=== PATIENT | male | born 1955 | race Hispanic/Latino ===

== ENCOUNTER 2017-08-17 16:12 | Emergency (ER) | payer MEDICARE ==
[~2017-08-17] VITALS: Ht 175.3 cm; Wt 123.4 kg
[~2017-08-17 16:12] MED LIST: ALPRAZOLAM0.5 MG PO; CALCIUM ACETATE PO; CLOPIDOGREL75 MG PO; CYCLOBENZAPRINE5 MG PO; HUMALOG 75100 UNITS/ SQ; NIFEDIPINE ER90 MG PO; PLAVIX PO; PRAVASTATIN SOD80 MG PO; REGLAN10 MG PO; Z HYTRIN PO; Z.0.ASPIRIN CHEW81 M PO; Z.0.LIPITOR80 MG; Z.0.LOPRESSOR50 MG PO; Z.0.PLAVIX75 MG; Z.0.PRINIVIL20 MG; Z.0.REGLAN5 MG; [UNRECOGNIZED DRUG - REMARK]
--- NOTE | 2017-08-17 17:37 | Diagnostic Imaging Report ---
PROCEDURE:X-RAY RIGHT SHOULDER, COMPLETE COMPARISON:None. INDICATIONS:FELL SHOULDER PAIN FINDINGS: There are no fractures, dislocations, lytic or blastic lesions. The bones are well-mineralized. The soft-tissues are unremarkable. CONCLUSION: No acute osseous abnormality. Nubia Encarnacion M.D. Dictated by: Nubia Encarnacion M.D. on 08/17/2017 at 17:45 Electronically approved by: Nubia Encarnacion M.D. on 08/17/2017 at 17:45
[2017-08-17 22:02] VITALS: BP 132/76
== END 2017-08-17 22:05 | disposition home or self-care (01) ==
LOC: ER 16:12
DX: S46.811A Strain of other muscles, fascia and tendons at shoulder and upper arm level, right arm, initial encounter (principal); W05.0XXA Fall from non-moving wheelchair, initial encounter; Y92.531 Health care provider office as the place of occurrence of the external cause; I12.0 Hypertensive chronic kidney disease with stage 5 chronic kidney disease or end stage renal disease; N18.6 End stage renal disease; Z99.2 Dependence on renal dialysis; I25.10 Atherosclerotic heart disease of native coronary artery without angina pectoris; I50.9 Heart failure, unspecified
CPT/HCPCS: 99283

== ENCOUNTER 2019-02-08 11:32 | Inpatient (IN) | payer MEDICARE, OTHER ==
[2019-02-08] VITALS (13 sets, daily range): BP systolic 58–185; BP diastolic 30–90
[~2019-02-08] VITALS: Ht 175.3 cm; Wt 120.4 kg
--- NOTE | 2019-02-08 12:41 | NUR ---
PATIENT TO ROOM 8
--- NOTE | 2019-02-08 12:54 | NUR ---
Alvaro ricci in ED - 02/08/19 at 1332 by GARRETT Hellen HERNÁNDEZ AT BEDSIDE CLEANING WOUND AND SURTURING PATIENT
[2019-02-08] MEDS ORDERED: ACETAMINOPHEN 325 MG TAB PO ONE (13:00)
[2019-02-08 13:32] LABS: BASOPHILS % 0.1 % (0.0-1.0); HEMATOCRIT 31.7 % (38.2-49.6); HEMOGLOBIN 10.3 g/dL (14.0-18.0); LYMPHOCYTES # (AUTO) 0.5 (1.0-3.2); LYMPHOCYTES % 4.4 % (18.0-39.1); MEAN CORPUSCULAR HEMOGLOBIN 30.9 pg (28-32); MEAN CORPUSCULAR HGB CONC 32.5 g/dL (31-35); MEAN CORPUSCULAR VOLUME 95.2 fL (81-99); MONOCYTES # (AUTO) 0.1 (0.2-0.8); MONOCYTES % 1.3 % (4.4-11.3); NEUTROPHILS % 93.5 % (38.7-80.0); PLATELET COUNT 133 x10e3/uL (140-360); RED BLOOD COUNT 3.33 x10e6/uL (4.3-5.7); RED CELL DISTRIBUTION WIDTH 15.3 % (11.7-14.4)
[2019-02-08 13:38] LABS: INR 1.15; PROTHROMBIN TIME 15.3 seconds (11.9-14.5)
[2019-02-08 13:39] LABS: PARTIAL THROMBOPLASTIN TIME 37.9 seconds (23.8-35.5)
[2019-02-08 13:48] LABS: ALBUMIN 2.9 g/dL (3.5-5.0); ALBUMIN/GLOBULIN RATIO 0.6 (0.8-2.0); CALCIUM 9.5 mg/dL (8.4-10.2); CREATININE, SERUM 6.23 mg/dL (0.72-1.25)
[2019-02-08] MEDS ORDERED: VANCOMYCIN 1GM/NS 250 ML 250 ML IV ONE (14:00)
--- NOTE | 2019-02-08 14:25 | Diagnostic Imaging Report ---
Examination: Single AP view of the chest. COMPARISON: None. INDICATION: Sepsis DISCUSSION: Right subclavian approach implantable cardiac device body projects over the right axilla. Leads project over the right atrium and right ventricle. Lung volumes are low. No focal consolidation or pneumothorax. Enlargement of the cardiac silhouette with postsurgical changes of prior median sternotomy. Prominence of the central pulmonary vasculature with interstitial prominence. No acute osseous abnormality. IMPRESSION: Enlargement of the cardiac silhouette with prominence of the pulmonary interstitium likely reflective of edema, though atypical infection is an additional consideration in the clinical setting of sepsis. Signed by: Dr. Elijah Kirk M.D. on 02/08/2019 2:21 PM
[2019-02-08] MEDS: CEFEPIME 2 GM/NS 0.9% 100 ML 100 ML IV SCH (14:35)
[2019-02-08] MEDS ORDERED: SODIUM BICARBONATE 8.4% INJ 50 ML SYR ONE (15:12)
[2019-02-08] MEDS ORDERED: EPINEPHRINE HCL 1:1000 1ML 1 MG/ML AMP ONE (15:12)
[2019-02-08] MEDS ORDERED: DOPAmine/D5W 1.6 MG/ML 400 MG/250ML PREMIX IV ONE (15:12)
[2019-02-08] MEDS ORDERED: EPINEPHRINE HCL SYRINGE ONE ×3 (15:12→20:16)
[2019-02-08] MEDS ORDERED: INSULIN REGULAR, HUMAN 100 UNIT/1 ML 3ML VIAL IV ONE (15:15)
[2019-02-08] MEDS ORDERED: IBUPROFEN 800MG/ 250ML 250 ML IV PRN (15:15)
[2019-02-08] MEDS ORDERED: ACETAMINOPHEN 325 MG TAB PO PRN (15:15)
[2019-02-08] MEDS ORDERED: SODIUM CHLORIDE FLUSH 10 ML SYR INJ PRN (15:15)
[2019-02-08] MEDS ORDERED: DEXTROSE 50% SYRINGE 50 ML IV PRN (15:15)
[2019-02-08] MEDS ORDERED: SODIUM CHLORIDE 0.9% 500ML 500 ML IV ONE (15:15)
[2019-02-08] MEDS ORDERED: IBUPROFEN 800MG/ 250ML 250 ML IV ONE (15:15)
--- NOTE | 2019-02-08 16:03 | NUR ---
ICE PACKS PLACED ON PATIENT. IBUPROFEN INFUSING
[2019-02-08] MEDS ORDERED: GABAPENTIN300 MG PO (16:27)
[2019-02-08] MEDS ORDERED: AMLODIPINE BESY10 MG PO (16:27)
[2019-02-08] MEDS ORDERED: RENAGEL800 MG PO (16:27)
[2019-02-08] MEDS ORDERED: LEVEMIR100 UNIT/1 SQ (16:42)
[2019-02-08] MEDS ORDERED: NEPHRO-VITE TABL1 EA PO (16:42)
[2019-02-08] MEDS ORDERED: MELATONIN3 MG PO (16:42)
[2019-02-08] MEDS ORDERED: ATORVASTATIN CA20 MG PO (16:42)
[2019-02-08] MEDS ORDERED: ISOSORBIDE MONO20 MG PO (16:42)
[2019-02-08] MEDS ORDERED: ACETAMINOPHEN 1000 MG/100 ML IV STA (17:10)
[2019-02-08] MEDS: INSULIN LISPRO 100 UNIT/1 ML 3ML VIAL SQ SCH ×2 (17:13→23:29)
--- NOTE | 2019-02-08 17:32 | NUR ---
PATIENT LESS RESPONSIVE RESPIRATORY CALLED TO DO ABG AND BIPAP. DR. BOWMAN AT BEDSIDE EVALUATING PATIENT. HE ALSO CALLED DR. PEREYRA AND PRINT INSPECTOR
--- NOTE | 2019-02-08 17:51 | NUR ---
ABG COMPLETED. PATIENT STARTED ON BIPAP.
--- NOTE | 2019-02-08 17:52 | NUR ---
PATIENT ON COOLING BLANKET BIPA 50% / RATE 14 07/18
--- NOTE | 2019-02-08 18:31 | NUR ---
Rachelle called for stat hemodialysis. Informed patient is to go to room 193.
--- NOTE | 2019-02-08 18:44 | NUR ---
SEE CODE SHEETS
[2019-02-08] MEDS ORDERED: MAGNESIUM SULFATE 2GM/50ML 50 ML IV ONE ×2 (18:45)
[2019-02-08] MEDS ORDERED: NOREPINEPHRINE 8 MG/D5W 250 ML 250 ML ONE (19:09)
[2019-02-08] MEDS ORDERED: SODIUM CHLORIDE 0.9% 1000ML 1,000 ML ONE ×3 (19:16→20:47)
[2019-02-08] MEDS: VASOPRESSIN 100 UNIT in DEXTROSE 5% 100ML 95 ML IV SCH (20:00)
--- NOTE | 2019-02-08 20:01 | Diagnostic Imaging Report ---
EXAMINATION: Head CT without contrast. HISTORY:Altered mental status, fever. COMPARISON:None. TECHNIQUE: Multidetector axial images were obtained from the foramen magnum to the vertex without contrast. The images were reconstructed using brain and bone algorithms. Thin section brain images were reformatted into coronal and sagittal planes. Dose modulation, iterative reconstruction, and/or weight based adjustment of the mA/kV was utilized to reduce the radiation dose to as low as reasonably achievable. Intravenous contrast: None IMAGE QUALITY: Acceptable. FINDINGS: Skull/scalp: No lytic or blastic. lesions. No surgical changes. Incidental atherosclerotic calcification in multiple peripheral scalp vessels. Parenchyma: Focal hypodensity in the body of left caudate and left man radiata represents old lacunar infarct. Nonspecific bilateral frontoparietal patchy white matter hypodensity are likely related to small vessel ischemic changes. No acute hemorrhage, mass or acute major vascular territorial infarct. Arteries: No density suggestive of thrombosis. Atherosclerotic calcification in bilateral carotid siphon and V4 segment of vertebral arteries. Dural sinuses: No abnormal density suggestive of thrombosis. Ventricles: No hydrocephalus or displacement. Extra-axial spaces: Small posterior fossa, retrocerebellar extra-axial cystic lesion with mild regional mass effect represents an arachnoid cyst. Brain volume: Mild generalized cerebral volume loss. Craniocervical junction: No mass, Chiari malformation, or basilar invagination. Sella: No mass. Paranasal/mastoid sinuses: Imaged portions unremarkable. IMPRESSION: 1. No acute intracranial abnormality, particularly no acute hemorrhage, mass or acute major vascular territorial infarct. 2. Mild supratentorial white matter microvascular ischemic changes and chronic lacunar infarct in left man radiata and body of left caudate. 3. Mild generalized cerebral volume loss. Signed by: Dr. Tami Schaffer M.D. on 02/08/2019 7:58 PM
[2019-02-08] MEDS ORDERED: EPINEPHRINE HCL 1:1000 1ML 4 MG in DEXTROSE 5% 250ML 250 ML IV PRN (20:15)
[2019-02-08] MEDS ORDERED: NITROGLYCERIN/D5W 200 MCG/ML 250 ML IV PRN (20:30)
[2019-02-08] MEDS ORDERED: ACETAMINOPHEN 325 MG/10 ML UDC PO PRN (20:30)
[2019-02-08] MEDS ORDERED: ACETAMINOPHEN 650 MG SUPP PR PRN (20:30)
--- NOTE | 2019-02-08 20:30 | NUR ---
ETT 8.0 @24 lip, PRVC 22, TV 480, FIO2 60%, P5
[2019-02-08 20:45] LABS: BASOPHILS # (AUTO) 0.1 (0.0-0.1); BASOPHILS % 0.2 % (0.0-1.0); HEMATOCRIT 29.2 % (38.2-49.6); HEMOGLOBIN 9.6 g/dL (14.0-18.0); LYMPHOCYTES # (AUTO) 1.8 (1.0-3.2); LYMPHOCYTES % 6.3 % (18.0-39.1); MEAN CORPUSCULAR HEMOGLOBIN 31.8 pg (28-32); MEAN CORPUSCULAR HGB CONC 32.9 g/dL (31-35); MEAN CORPUSCULAR VOLUME 96.7 fL (81-99); MONOCYTES # (AUTO) 1.7 (0.2-0.8); MONOCYTES % 5.8 % (4.4-11.3); NEUTROPHILS # (AUTO) 24.3 (2.1-6.9); NEUTROPHILS % 85.5 % (38.7-80.0); PLATELET COUNT 147 x10e3/uL (140-360); RED BLOOD COUNT 3.02 x10e6/uL (4.3-5.7); RED CELL DISTRIBUTION WIDTH 15.5 % (11.7-14.4)
[2019-02-08] MEDS ORDERED: ASPIRIN 81 MG CHEW TAB PO ONE (20:45)
[2019-02-08] MEDS ORDERED: PANTOPRAZOLE 40 MG 10ML VIAL IV ONE (20:51)
--- NOTE | 2019-02-08 20:59 | NUR ---
Lactic acid 76.1. Dr Clark notified. No new orders.
[2019-02-08] MEDS ORDERED: HEPARIN SOD (PORCINE) 5,000 UNIT/ML VIAL SC SCH (21:00)
[2019-02-08 21:01] LABS: ALBUMIN 2.2 g/dL (3.5-5.0); ALBUMIN/GLOBULIN RATIO 0.6 (0.8-2.0); ANION GAP 22.5 mmol/L (8-16); CALCIUM 8.2 mg/dL (8.4-10.2); CREATININE, SERUM 6.45 mg/dL (0.72-1.25)
[2019-02-08 21:06] LABS: POTASSIUM 2.5 mmol/L (3.5-5.1)
[2019-02-08] MEDS ORDERED: CISATRACURIUM BESYLATE 100 MG in SODIUM CHLORIDE 0.9% 100 ML IV PRN (21:15)
[2019-02-08] MEDS: SODIUM CHLORIDE 0.9% 250ML IRRIG IR SCH (21:15)
[2019-02-08] MEDS ORDERED: MIDAZOLAM HCL 2 MG/2 ML VIAL IV PRN (21:15)
[2019-02-08] MEDS ORDERED: SODIUM BICARBONATE 8.4% SYRING 50 ML ONE (21:18)
[2019-02-08] MEDS ORDERED: SODIUM BICARBONATE 8.4% INJ 50 ML SYR IV ONE ×2 (21:18)
[2019-02-08 21:20] LABS: ABG HCO3 6 mmol/L (23-28); ABG PCO2 16 mmHg (41-51); ABG PH 7.21 (7.31-7.41); ABG PO2 116 mmHg (80-105)
[2019-02-08 21:20] LABS: INR 1.38; PROTHROMBIN TIME 17.6 seconds (11.9-14.5)
[2019-02-08 21:21] LABS: PARTIAL THROMBOPLASTIN TIME 49.7 seconds (23.8-35.5)
[2019-02-08 21:28] LABS: CREATINE KINASE MB 3.2 ng/mL (0-5.0)
[2019-02-08] MEDS ORDERED: POTASSIUM CHLORIDE 20MEQ/100ML 200 ML IV ONE (21:30)
[2019-02-08] MEDS ORDERED: SODIUM CHLORIDE 0.9% 500ML 500 ML ONE ×2 (21:41→21:42)
--- NOTE | 2019-02-08 21:50 | Diagnostic Imaging Report ---
Examination: Single AP view of the chest. COMPARISON: None. INDICATION: Renal disease, sepsis DISCUSSION: Lines/tubes: Endotracheal tube 3.5 cm above the les. Right IJ catheter with tip over the SVC. Sternotomy wires. Lungs: Pulmonary venous congestion. Pleura: Unremarkable Heart and mediastinum: Cardiomegaly Bones and soft tissues: No acute bony abnormalities. IMPRESSION: 1. Cardiomegaly with pulmonary venous congestion Signed by: Dr. Cortez Dorsey M.D. on 02/08/2019 9:47 PM
--- NOTE | 2019-02-08 21:52 | Diagnostic Imaging Report ---
Exam: Abdominal film Clinical History: Sepsis Comparison: None. DISCUSSION: Right femoral catheter with distal tip overlying the lower lumbar spine. Temperature probe. Nonobstructive bowel gas pattern. IMPRESSION: 1. Nonobstructive bowel gas pattern. Signed by: Dr. Cortez Dorsey M.D. on 02/08/2019 9:48 PM
[2019-02-08] MEDS: CLINDAMYCIN PHOS 900MG/ 50ML 50 ML IV SCH (22:00)
--- NOTE | 2019-02-08 22:41 | Consultation ---
DATE OF CONSULTATION: 02/08/2019 REASON FOR CONSULTATION: Fever, chills, and sepsis. HISTORY OF PRESENT ILLNESS: This patient, who is a 64-year-old [place] male with history of end-stage renal disease, on hemodialysis, comes in with fever, chills, and sepsis. He was seen in the emergency room. The patient started to have fever and chills after dialysis. There are no other complaints. He denies any nausea, vomiting, diarrhea, urgency, frequency, or cough. The patient is confused, but apparently knows his underlying condition. The patient was sent to the emergency room. In the emergency room, he was admitted. At the present time, according to the nursing team, he has been stable except for the fever and chills. The patient, who has history of coronary artery disease, history of angina, and history of end-stage disease, on hemodialysis, had a cardiac catheterization before. History of diabetes mellitus, history of pacemaker, atherosclerotic disease, severe coronary artery disease, severe peripheral vascular disease, morbidly obese patient. PAST MEDICAL HISTORY: Diabetes mellitus, end-stage renal disease, and dementia. PAST SURGICAL HISTORY: IV access for dialysis. ALLERGIES: NKA. SOCIAL HISTORY: There is no smoking, drug abuse, or alcohol abuse. FAMILY HISTORY: Hypertension and diabetes. REVIEW OF SYSTEMS: At the present time, he is not a good source of information as mentioned above. LABORATORY DATA: Reviewed in the emergency room. Blood culture still pending. White count 10.73 and hemoglobin of 10. Sodium 129, potassium 4, and creatinine 6.3. He had a chest x-ray, which showed enlargement of the heart, possible pneumonia. PHYSICAL EXAMINATION: GENERAL: He is currently alert and confused. VITAL SIGNS: Stable. Currently afebrile. HEENT: He is not icteric. NECK: Supple. CHEST: Clear bilateral. COR: S1 and S2. No S3, S4, or murmur. ABDOMEN: Soft. Bowel sounds present. No tenderness. EXTREMITIES: No edema. IMPRESSION AND PLAN: Sepsis, present on admission, source could be pneumonia versus other. I recommended blood cultures and urine cultures. Agree with vancomycin. Agree with cefepime. Vancomycin 1 g now and then after each hemodialysis. Cefepime 1 g now and then every 24 hours. Recheck CBC. Recheck chem panel. Renal consultation. We will follow. MD JOSELO Witt /[id number]
[2019-02-08] MEDS: EYE LUBRICANT OPTH OINT 3.5GM TUBE OP SCH (23:06)
[2019-02-08] MEDS: PANTOPRAZOLE 40 MG 10ML VIAL IV SCH (23:13)
--- NOTE | 2019-02-08 23:51 | Consultation ---
DATE OF CONSULTATION: 02/08/2019 Pulmonary Consultation. The patient of Dr. Clark, Dr. Yeung, and Dr. Melendez. HISTORY OF PRESENT ILLNESS: Unfortunate 64-year-old gentleman was well yesterday prior to admission, underwent dialysis. This morning, he developed a high fever and chills, and became progressively obtunded according to the ER record and then soon arrested, was resuscitated, history of end-stage renal disease, coronary artery disease, peripheral vascular disease, obstructive sleep apnea, history of smoking in the past. No history of insect bites, diarrhea, chest pain, or cough. He did vomit once apparently this morning, was taken to the emergency room. He has had a right BK amputation in the past, AV fistula left arm, coronary artery bypass surgery, gallbladder surgery. PHYSICAL EXAMINATION: VITAL SIGNS: Temperature in the emergency was 104 and is now comatosed, intubated, myoclonic jerks are noted. Temperature 102.6, pulse 93, respirations 18, blood pressure LUNGS: Bilateral rhonchi. HEART: Regular rhythm. ABDOMEN: Diminished bowel sounds. EXTREMITIES: amputation, AV fistula left arm. IMPRESSION: Sepsis, source unclear. I called infectious disease doctor . White count on admission was 10.7, rising rapidly to 28. Check coags. Prophylactic heparin, prophylactic Protonix. Cooling protocol has been initiated. Family conference with the and multiple other family members. Dr. Clark did request full code at this time. We will consider changing in the morning. Poor outlook was discussed. PLAN: To obtain CT of the abdomen, chest x-ray, KUB when patient can tolerate these. Elijah Sosa MD DS/MODL /[id number]
[2019-02-09] VITALS (58 sets, daily range): BP systolic 76–144; BP diastolic 44–65
--- NOTE | 2019-02-09 00:27 | Diagnostic Imaging Report ---
Exam: Abdominal film Clinical History: Enteric tube placement Comparison: None. DISCUSSION: Enteric tube with the tip at the gastroesophageal junction. Recommend further advancement. No dilated loops of bowel. IMPRESSION: 1. Enteric tube with the tip at the gastroesophageal junction. Recommend further advancement. Signed by: Dr. Cortez Dorsey M.D. on 02/09/2019 12:24 AM
[2019-02-09] MEDS: IPRATROPIUM BROMIDE 0.02% 2.5 ML NEB NEB SCH ×4 (00:30→18:49)
--- NOTE | 2019-02-09 00:32 | Consultation ---
DATE OF CONSULTATION: 02/08/2019 HISTORY OF PRESENT ILLNESS: A 64-year-old gentleman known to our Nephrology Service, type 2 diabetes, end-organ damage, neuropathy, retinopathy, peripheral vascular disease, status post extremity amputation procedures, on dialysis. Apparently, developed fever and chills yesterday. From this morning was very lethargic and poorly responsive. Brought to the Emergency Room, where he rapidly deteriorated, currently on BiPAP, and he is although lying flat oxygen saturation 100%, but he is unresponsive. The patient does not follow commands. I am unable to get any review of systems. Blood cultures have been sent. He has been given empiric antibiotics in the form of cefepime. Also received a dose of vancomycin. He is also on insulin sliding scale. Laboratory test shows a white count 10.7, hemoglobin 10.3. Sodium 129, potassium 4, bicarbonate 27, BUN 35, creatinine 6.2, glucose 408 with a lactic acid of 35.7, now these are different parameters as far as the hospitalist concerned. The reference range is 4.5 to 19.8. His magnesium was 1.7. Total bilirubin is 1.0. His influenza test is negative. He was last dialyzed yesterday. Chest x-ray, official report shows prominence of interstitium, likely reflective of edema, though atypical infection is an additional consideration. PAST HISTORY: History of coronary artery bypass surgery, history of hiatal hernia, gastritis, hypertension, diabetes, end-stage renal disease. FAMILY HISTORY: Significant for diabetes. PHYSICAL EXAMINATION: GENERAL: The patient is on BiPAP, unresponsive. VITAL SIGNS: Blood pressure of 98/57, pulse rate 70, afebrile, oxygen saturation 100%. HEAD and NECK: Limited due to BiPAP. Neck veins are not distended. LUNGS: Harsh vesicular breath sounds. Air entry good bilaterally. No clear-cut rales. HEART: S1, S2 audible. ABDOMEN: Otherwise soft, nontender. EXTREMITIES: Lower extremity shows evidence of TMA and BKA. IMPRESSION AND PLAN: Sepsis with relative hypotension, hypomagnesemic, end-stage renal disease, question of possible fluid overload, although this could be pneumonia. Source of infection unclear. We will obtain a stat BNP. Dr. Ryan consulted. Agree with choice of antibiotics. Please see orders. Dialysis called urgently for stat dialysis. MD LEONIE Stanford/MADIHA /[id number]
[2019-02-09] MEDS: SODIUM CHLORIDE 0.9% 250ML IRRIG IR SCH ×6 (01:15→19:38)
[2019-02-09] MEDS: NOREPINEPHRINE 8 MG/D5W 250 ML 250 ML IV PRN (01:40)
[2019-02-09 02:29] LABS: BASOPHILS % 0.1 % (0.0-1.0); EOSINOPHILS # (AUTO) 0.1 (0.0-0.4); EOSINOPHILS % 0.3 % (0.0-6.0); HEMATOCRIT 29.6 % (38.2-49.6); LYMPHOCYTES # (AUTO) 0.8 (1.0-3.2); LYMPHOCYTES % 3.8 % (18.0-39.1); MEAN CORPUSCULAR HEMOGLOBIN 31.8 pg (28-32); MEAN CORPUSCULAR HGB CONC 33.8 g/dL (31-35); MEAN CORPUSCULAR VOLUME 94.3 fL (81-99); MONOCYTES # (AUTO) 1.4 (0.2-0.8); MONOCYTES % 6.4 % (4.4-11.3); NEUTROPHILS # (AUTO) 19.2 (2.1-6.9); NEUTROPHILS % 87.9 % (38.7-80.0); RED BLOOD COUNT 3.14 x10e6/uL (4.3-5.7); RED CELL DISTRIBUTION WIDTH 15.6 % (11.7-14.4)
[2019-02-09 02:39] LABS: INR 1.36; PLATELET COUNT 116 x10e3/uL (140-360); PROTHROMBIN TIME 17.4 seconds (11.9-14.5)
[2019-02-09 02:40] LABS: PARTIAL THROMBOPLASTIN TIME 39.8 seconds (23.8-35.5)
[2019-02-09 02:46] LABS: ANION GAP 23.7 mmol/L (8-16); CALCIUM 8.4 mg/dL (8.4-10.2); CREATININE, SERUM 6.53 mg/dL (0.72-1.25); MAGNESIUM 1.9 MG/DL (1.3-2.1); PHOSPHORUS 3.6 MG/DL (2.3-4.7)
[2019-02-09 03:04] LABS: POTASSIUM 3.7 mmol/L (3.5-5.1)
[2019-02-09] MEDS: CEFEPIME 2 GM/NS 0.9% 100 ML 100 ML IV SCH ×2 (03:46→14:06)
[2019-02-09] MEDS: EYE LUBRICANT OPTH OINT 3.5GM TUBE OP SCH ×6 (03:55→21:10)
[2019-02-09] MEDS ORDERED: INSULIN REGULAR, HUMAN 3ML VL 100 UNIT in SODIUM CHLORIDE 0.9% 100 ML 99 ML IV SCH ×2 (04:00)
--- NOTE | 2019-02-09 04:12 | History and Physical ---
REASON FOR ADMISSION: 1. Sepsis. 2. Status post . 3. Respiratory failure. 4. End-stage renal disease. 5. Lactic acidosis. 6. Metabolic acidosis secondary to lactic acidosis. HISTORY OF PRESENT ILLNESS: The patient is a gentleman, who according to the family was in his usual state of health until approximately about 10:30 this morning when he started becoming febrile and then became slightly confused . During the workup hospitalist noted the patient seemed a little bit more obtunded CPR was initiated and resuscitative measures initiated , but he is not started on Levophed as well as epinephrine , so epinephrine is now being discontinued. He is currently not sedated, but he is now awake, though at this time. PAST MEDICAL HISTORY: Significant for diabetes, end-stage renal disease, peripheral arterial disease, amputation below the right knee, amputation of the left transmetatarsal, hypertension, and hyperlipidemia. MEDICATIONS: See MAR. ALLERGIES: SEE MAR. SOCIAL HISTORY: Lives at home with his . Nonsmoker, nondrinker. PHYSICAL EXAMINATION: VITAL SIGNS: . GENERAL: He is lying in bed intubated, nonresponsive. NECK: Supple. No rigidity. No lymphadenopathy. CARDIOVASCULAR: Regular rate and rhythm. LUNGS: Decreased breath sounds. ABDOMEN: Soft. No distention is noted. EXTREMITIES: No clubbing or cyanosis. No edema of the left foot. SKIN: There is gangrene at the right BKA and left TMA as well as at the AV fistula site. There is another stage 2 ulcer on his buttocks side. He has evidence of erythema. NEUROLOGIC: Unable to be obtained. ASSESSMENT AND PLAN: 1. Sepsis. We will continue the broad-spectrum antibiotics including the clindamycin. Blood cultures have been drawn. 2. Leukocytosis, continue to monitor. 3. Respiratory failure. Continue current care per Dr. Sosa. 4. Status post . 5. End-stage renal disease. He is treated with . 6. Hypokalemia, will be replaced. 7. Metabolic acidosis secondary to lactic acidosis. We will place him on Cymbalta. DISCHARGE DISPOSITION: I had a long talk with the family and then reassess in the morning. . MD LISBETH Bernal/MADIHA /[id number]
[2019-02-09] MEDS ORDERED: INSULIN REGULAR, HUMAN 3ML VL 300 UNIT in SODIUM CHLORIDE 0.45% 100 ML 300 ML IV SCH ×2 (04:29)
[2019-02-09] MEDS ORDERED: DEXTROSE 50% SYRINGE 50 ML IV PRN ×2 (04:30→16:30)
[2019-02-09] MEDS: CLINDAMYCIN PHOS 900MG/ 50ML 50 ML IV SCH (06:43)
--- NOTE | 2019-02-09 07:22 | Progress Note ---
DATE: 02/09/2019 SUBJECTIVE: The patient is a 64-year-old male with a history of end-stage renal disease, comes in with sepsis, comes into the emergency room, who was found to have PE, intubated. The patient is on hypothermia protocol. The patient also has end-stage renal disease. Continuous IV antibiotics and IV hydration have been instituted. The patient is currently on a ventilator for acute respiratory failure too. The patient does continues to have temperature and he is on hypothermic protocol. Fever and chills have come down. The patient has a history of diabetes mellitus. Blood sugars have been running in the 500, IV insulin has been started too. The patient has a history of pacemaker, severe coronary artery disease, and history of morbid obesity with sleep apnea and also severe PAD. The patient was getting his dialysis on when after dialysis, the patient started with fever and feeling bad. Currently, intubated. OBJECTIVE: VITAL SIGNS: Temperature is 91.4, pulse of 70, respirations of 22, blood pressure is 102/54, pulse oximetry of 100%. HEENT: The patient is intubated. CVS: S1 and S2 distant. LUNGS: Decreased air entry. Positive for crackles at bases. ABDOMEN: Distended, protuberant. EXTREMITIES: Right lower extremity below-knee amputation. Left with transmetatarsal amputation. LABORATORY VALUES: White count is 21,000, down from 28,000; hemoglobin of 10; hematocrit of 29.6; platelet count is 116; neutrophil count of 19.2; left shift present. IMAGING STUDIES: Abdominal x-ray done yesterday shows enteric tube with tip at the GE junction. Chest x-ray shows cardiomegaly with pulmonary venous congestion. The patient's brain CT done on the shows no acute intracranial hemorrhages, mild supratentorial white matter ischemic changes, and mild generalized volume loss. The patient's chest x-ray shows enlargement of cardiac silhouette and congestion. ASSESSMENT: 1. Sepsis. The patient is on broad-spectrum antibiotics. Currently, the patient is on clindamycin, cefepime, and a dose of vancomycin was given. 2. End-stage renal disease. Continue monitoring his lytes. 3. Acute respiratory failure, on ventilator. Continue with current vent settings. Pulmonology on case. 4. Sepsis. Again, the patient is on vasopressin and epinephrine. We will continue with pressors. The patient is also on GI prophylaxis with pantoprazole 40 mg and also the patient is getting the insulin drip for hyperglycemia. 5. For his end-stage renal disease, the patient had a stat dialysis. We will continue to monitor the patient. We did discuss with at bedside. Prognosis is very poor and guarded. We will continue to monitor the patient. Labs will be done on a daily basis. We will continue with full code at this point of time, that is the wish of the family. Further recommendation per clinical course. We will keep the patient in ICU. MD BASILIO Joe/MODL /[id number]
--- NOTE | 2019-02-09 08:05 | NUR ---
0800- Labwork drawn. BG 373 (Insulin drip continued at 4units/hr per protocol). Dr. Liu ordered dialysis stat. RN contacted [facility] for stat dialysis.
[2019-02-09 08:08] LABS: BASOPHILS % 0.2 % (0.0-1.0); EOSINOPHILS # (AUTO) 0.2 (0.0-0.4); EOSINOPHILS % 1.3 % (0.0-6.0); HEMATOCRIT 28.4 % (38.2-49.6); HEMOGLOBIN 9.6 g/dL (14.0-18.0); LYMPHOCYTES # (AUTO) 0.8 (1.0-3.2); LYMPHOCYTES % 5.1 % (18.0-39.1); MEAN CORPUSCULAR HEMOGLOBIN 31.5 pg (28-32); MEAN CORPUSCULAR HGB CONC 33.8 g/dL (31-35); MEAN CORPUSCULAR VOLUME 93.1 fL (81-99); MONOCYTES # (AUTO) 0.8 (0.2-0.8); MONOCYTES % 4.8 % (4.4-11.3); NEUTROPHILS # (AUTO) 13.9 (2.1-6.9); NEUTROPHILS % 86.7 % (38.7-80.0); PLATELET COUNT 98 x10e3/uL (140-360); RED BLOOD COUNT 3.05 x10e6/uL (4.3-5.7); RED CELL DISTRIBUTION WIDTH 15.6 % (11.7-14.4)
[2019-02-09 08:18] LABS: INR 1.36; PROTHROMBIN TIME 17.4 seconds (11.9-14.5)
[2019-02-09 08:19] LABS: PARTIAL THROMBOPLASTIN TIME 48.6 seconds (23.8-35.5)
[2019-02-09] MEDS: FENTANYL CITRATE INJ 2000 MCG in SODIUM CHLORIDE 0.9% 210 ML IV PRN (08:20)
[2019-02-09 08:31] LABS: ALBUMIN/GLOBULIN RATIO 0.5 (0.8-2.0); ANION GAP 18.5 mmol/L (8-16); CALCIUM 8.6 mg/dL (8.4-10.2); CREATININE, SERUM 6.62 mg/dL (0.72-1.25); MAGNESIUM 1.9 MG/DL (1.3-2.1); PHOSPHORUS 3.9 MG/DL (2.3-4.7); POTASSIUM 3.5 mmol/L (3.5-5.1)
[2019-02-09 09:03] LABS: CREATINE KINASE MB 15.2 ng/mL (0-5.0)
[2019-02-09 09:09] LABS: BAND NEUTROPHILS % (MANUAL) 10 %; LYMPHOCYTES % (MANUAL) 5 % (19-48); MONOCYTES % (MANUAL) 3 % (3.4-9.0); NEUTROPHILS % (MANUAL) 82 % (40-74); PLATELET ESTIMATE MODERATELY DECREASED; PLATELET MORPHOLOGY COMMENT NORMAL; RBC MORPHOLOGY COMMENT NORMAL
[2019-02-09] MEDS ORDERED: SODIUM CHLORIDE 0.9% 1000ML 2,000 ML ONE (09:18)
[2019-02-09 09:32] LABS: ABG PCO2 30 mmHg (41-51); ABG PH 7.43 (7.31-7.41); ABG PO2 62 mmHg (80-105)
[2019-02-09 09:33] LABS: ABG HCO3 20 mmol/L (23-28)
--- NOTE | 2019-02-09 10:00 | NUR ---
Dr. Yeung aware of patients elevated troponin levels.
--- NOTE | 2019-02-09 10:00 | NUR ---
BG's checked by drawing blood through art line and using glucometer.
[2019-02-09] MEDS ORDERED: INSULIN REGULAR, HUMAN 3ML VL 100 UNIT in SODIUM CHLORIDE 0.45% 100 ML 99 ML IV SCH ×2 (11:00)
--- NOTE | 2019-02-09 12:34 | Diagnostic Imaging Report ---
Exam: KUB - 2 views Clinical History: OG tube placement. Comparison: KUB 02/08/2019 at 1041 PM. DISCUSSION: Enteric tube with the tip at the gastroesophageal junction. Partially seen likely central venous catheter overlying the L4 vertebral body. Non-specific bowel gas pattern. Median sternotomy changes. IMPRESSION: Enteric tube with the tip at the gastroesophageal junction. Recommend advancement. Signed by: Dr. Rox Sanchez MD on 02/09/2019 12:30 PM
[2019-02-09] MEDS ORDERED: VANCOMYCIN 1GM/NS 250 ML 250 ML IV ONE (14:00)
[2019-02-09 14:03] LABS: ABG HCO3 27 mmol/L (23-28); ABG PCO2 47 mmHg (41-51); ABG PH 7.37 (7.31-7.41); ABG PO2 135 mmHg (80-105)
[2019-02-09 14:03] LABS: BASOPHILS # (AUTO) 0.1 (0.0-0.1); BASOPHILS % 0.2 % (0.0-1.0); HEMATOCRIT 32.3 % (38.2-49.6); HEMOGLOBIN 10.8 g/dL (14.0-18.0); LYMPHOCYTES % 5.1 % (18.0-39.1); MEAN CORPUSCULAR HEMOGLOBIN 30.7 pg (28-32); MEAN CORPUSCULAR HGB CONC 33.4 g/dL (31-35); MEAN CORPUSCULAR VOLUME 91.8 fL (81-99); MONOCYTES # (AUTO) 1.6 (0.2-0.8); MONOCYTES % 7.8 % (4.4-11.3); NEUTROPHILS # (AUTO) 17.5 (2.1-6.9); NEUTROPHILS % 86.4 % (38.7-80.0); PLATELET COUNT 126 x10e3/uL (140-360); RED BLOOD COUNT 3.52 x10e6/uL (4.3-5.7); RED CELL DISTRIBUTION WIDTH 15.5 % (11.7-14.4)
[2019-02-09 14:19] LABS: INR 1.24; PROTHROMBIN TIME 16.2 seconds (11.9-14.5)
[2019-02-09 14:20] LABS: PARTIAL THROMBOPLASTIN TIME 42.7 seconds (23.8-35.5)
[2019-02-09] MEDS ORDERED: SODIUM CHLORIDE 0.9% 250ML 500 ML IV PRN (14:30)
[2019-02-09] MEDS ORDERED: SODIUM CHLORIDE 0.9% 1000ML 2,000 ML IV PRN (14:30)
[2019-02-09 14:31] LABS: ANION GAP 16.5 mmol/L (8-16); CALCIUM 9.1 mg/dL (8.4-10.2); CREATININE, SERUM 3.82 mg/dL (0.72-1.25); MAGNESIUM 1.9 MG/DL (1.3-2.1); PHOSPHORUS 3.6 MG/DL (2.3-4.7); POTASSIUM 3.5 mmol/L (3.5-5.1)
[2019-02-09 14:56] LABS: CREATINE KINASE MB 19.5 ng/mL (0-5.0)
--- NOTE | 2019-02-09 15:00 | NUR ---
Patient too unstable to turn Q2 hours throughout the shift. Will resume turning Q2 when patient becomes stable.
[2019-02-09] MEDS ORDERED: SODIUM CHLORIDE 0.9% 500ML 500 ML ONE (15:22)
[2019-02-09 15:50] LABS: BAND NEUTROPHILS % (MANUAL) 5 %; LYMPHOCYTES % (MANUAL) 5 % (19-48); MONOCYTES % (MANUAL) 3 % (3.4-9.0); NEUTROPHILS % (MANUAL) 87 % (40-74)
[2019-02-09 15:53] LABS: PLATELET ESTIMATE SLIGHTLY DECREASED; PLATELET MORPHOLOGY COMMENT MODERATE GIANT
--- NOTE | 2019-02-09 16:48 | Diagnostic Imaging Report ---
EXAMINATION: CHEST SINGLE (PORTABLE), ABDOMEN-1VIEW (KUB) INDICATION: NG Tube placement. COMPARISON: KUB 02/09/2019 and chest radiograph 02/08/2019. FINDINGS: TUBES and LINES: Enteric tube terminates 4.0 cm above the les. NG tube terminates at the thoracic inlet, the side-port overlies the neck. Right-sided pacemaker in unchanged position. Right IJ venous catheter tip is obscured but likely terminates in the upper SVC. LUNGS: Low lung volumes which decreases sensitivity and specificity for pathology. There are perihilar and interstitial opacities. There are increasing patchy opacities at the lung bases. PLEURA: Possible small left pleural effusion. No evidence of pneumothorax. HEART AND MEDIASTINUM: The cardiomediastinal silhouette is mildly enlarged. There are atherosclerotic calcifications within the aorta. BONES AND SOFT TISSUES: No acute osseous abnormality. Status post median sternotomy. ABDOMEN: Limited visualization of the left upper abdomen. No free air under the diaphragm. No dilated bowel loops. IMPRESSION: NG tube terminates at the thoracic inlet, recommend repositioning. Other lines and tubes as above. Low lung volumes with increasing pulmonary edema. Increasing patchy opacities of the lung bases, which may represent atelectasis or pneumonia in the appropriate clinical setting. Signed by: Dr. Rox Sanchez MD on 02/09/2019 4:45 PM
[2019-02-09 17:26] LABS: FREE T4 (FREE THYROXINE) 1.48 ng/dL (0.8-1.8); THYROID STIMULATING HORMONE 1.726 uIU/mL (0.350-4.940)
[2019-02-09 17:33] LABS: ABG PCO2 40 mmHg (41-51); ABG PH 7.45 (7.31-7.41)
[2019-02-09 17:34] LABS: ABG HCO3 29 mmol/L (23-28); ABG PO2 115 mmHg (80-105)
--- NOTE | 2019-02-09 17:57 | NUR ---
0845- ABG done, vent settings changed per Dr. Sosa. 0930- Consults Dr. Hickey and Lasha notified. 1140- Repeat ABG done and Dr. Sosa notified of results. No new orders at this time. MD aware that pulse ox is reading incorrectly, ABGs were done to confirm O2 saturations. 1400- Dialysis completed 2.5 L removed. 1600- Patient weaned off of Levophed. Arterial line blood pressures stable at this time. Hypothermia protocol to be continued until time to rewarm. Patient does not appear to be in any distress at this time.
--- NOTE | 2019-02-09 18:10 | NUR ---
OG tube requiring advancement per imaging. RN unable to further advance OG tube. NG tube placement attempted, however imaging revealed unsuccessful placement. NG tube was then removed.
--- NOTE | 2019-02-09 18:27 | NUR ---
Nutrition Intervention Note RD Recommendation(s) for Physician: 1.When hemodynamically stable recommend to initiate continuous tube feed Vital HP @ 10mL/hr and advance as tolerated to goal rate of 70ml/hr (1680kcal, 147g protein, 1404mL of H20) 2.Add Ilia BID (28g protein) into NG tube to increase protein calorie intake for ESRD and pressure ulcer 3.Water flushes 50ml q 4hrs, additional per MD 4.Monitor labs, gastric residuals and weight daily Plan of Care: RD following, monitoring for tolerance and adequacy, TF recommendations Nutrition reason for involvement: Nutrition Risk Trigger RD Assessment (02/09) 64 y/o M in with sepsis, found to have PE, intubated. The patient is on hypothermia protocol. The patient also has ESRD, Stage 2 pressure wound. Patient unable to communicate due to patient medical status on ventilator. Visited patient in the room, noted Norepinephrine running at 1.2mcg/min, RN stated will be turned up to 5mcg/min. No family at bedside, will communicate nutrition recommendation when patient is hemodynamically stable to feed. Principal Problems/Diagnoses: ESRD, Sepsis PMH: Significant for diabetes, end-stage renal disease, peripheral arterial disease, amputation below the right knee, amputation of the left transmetatarsal, hypertension, and hyperlipidemia GI: Abdominal. Soft large, OG tube present Skin: Stage pressure wound noted by RN, pending wound care visits Labs: (02/09) Sodium 134, Creat 3.82, GFR 16, Glucose 235, Meds: (02/09) Fentanyl, Cefepime, Norepinephrine, Protonix Ht: 69in Wt: 266 lbs BMI: N/A IBW: 151 lbs with BKA +/- 10% Malnutrition Evaluation (02/09) Unable to evaluate due to current medical status Nutrition Prescription (Diet Order): ADA Diet Estimated Nutritional Needs: 5300-2415 calories/day (11-14kcal/kg CBW) 181-240 g protein/day (1.5 -2.0g pro/kg CBW) Diet Adequacy: Not meeting calorie needs, not meeting protein needs Diet Education Needs Assessment: Diet education indicated, but patient not appropriate for education at this time. Nutrition Care Level: HIGH Nutrition Diagnosis: Inadequate oral intake related to patient unable to eat orally as evidenced by patient on ventilator and current medical status Goal: Patient will meet 75-100% of estimated needs by follow up Progress: Progressing Interventions: Commercial food, Composition, Rate, Route, IVF, Prescription medications, Multivitamin/mineral supplement therapy Monitoring/Evaluation: Total energy intake, Total protein intake, Formula/Solution, IVF, Prescription medication, Weight change Signed: Jessica Herman MS, RDN, LD
--- NOTE | 2019-02-09 18:59 | Consultation ---
DATE OF CONSULTATION: 02/09/2019 Endocrine Consultation. The patient of Dr. Clark and Dr. Leonarda Melendez. Thank you very much for referring this patient. HISTORY OF PRESENT ILLNESS: This is a 64-year-old gentleman who was referred to me for evaluation of uncontrolled diabetes mellitus and diabetic ketoacidosis. Most of the history is available from the chart and from the nursing station. The patient reportedly is a known diabetic and is on insulin. He has end-stage renal failure on chronic hemodialysis. He came to the hospital with history of altered mental status and sepsis. The patient is presently on the vent and hypothermia protocol. The patient also has history of hypertension, high blood pressure. The patient is presently on the vent. He is status post cardiorespiratory arrest and ARDS. His lactic acid levels are significantly elevated at the time of admission at 76. His blood sugar at the time of admission was 408 and anion gap is around 18. PHYSICAL EXAMINATION: GENERAL: Today, the patient is sedated. He is on the vent. VITAL SIGNS: His heart rate is around 70, blood pressure is 110/70. He is still on a pressor. CHEST: Bilateral vesicular breathing. He has mild bronchospasm. CARDIOVASCULAR: First and second heart sounds. There are no third or fourth heart sounds with the systolic grade 2/6. The patient is status post TMA on the left side and below-knee amputation on the right side. CLINICAL IMPRESSION: Diabetes mellitus type 2, uncontrolled with complication, diabetic ketoacidosis, lactic acidosis, sepsis, end-stage renal failure on chronic hemodialysis, acute respiratory failure, ARDS. PLAN: At this time is to continue the insulin drip. We will do a hemoglobin A1c, thyroid function test. Monitor his blood sugars closely. Thanks for referring this patient. I will be following this patient with you. MD BROOKLYN Lomeli/MADIHA /[id number]
--- NOTE | 2019-02-09 19:19 | Consultation ---
DATE OF CONSULTATION: 02/09/2019 Cardiac Consultation REASON FOR CONSULTATION: Multiple problems including status post CPR, respiratory failure, sepsis and septicemia, end-stage renal disease, on dialysis; coronary artery disease, status post coronary artery bypass surgery, status post pacemaker implantation; severe peripheral arterial vascular disease, metabolic acidosis and lactic acidosis secondary to septicemia. HISTORY OF PRESENT ILLNESS: This is a 64-year-old gentleman, who is known with several health problems including coronary artery disease, coronary artery bypass surgery in 2014 with pacemaker implantation same year. Has hypertension. He is known to have severe peripheral arterial vascular disease, status post right below-knee amputation and left metatarsal amputation. He is diabetic with severe end-organ damage affecting his peripheral neuropathy, cardiac, renal, vision, etc. He does have history of atrial fibrillation, refusing anticoagulation. The patient was in his usual status of health. As per family, he started spiking temperature. Yesterday his temperature was very high and he become more confused, more agitated. He was brought to the emergency room. He was obtunded. He went to pulmonary and cardiac arrest and he was extremely hypotensive. The patient states that he was covered with antibiotics. He had blood culture. He is placed on large dose of Levophed and vasopressin to maintain blood pressure. The patient is on Levophed and vasopressin large dosage. He is having severe lactic acidosis. His white blood cell count at 28.5. His lactic acid is elevated. He got severe metabolic derangement. The patient is transferred to intensive care unit. The patient is seen in the intensive care unit. He is still on Levophed and vasopressin. He is started on hemodialysis, the goal is to take 3 liters of fluid. He is really ill. He is on ventilator. Information taken from the family and the nursing staff and from his records. REVIEW OF SYSTEMS: Unable to get. SOCIAL HISTORY: He stopped smoking in 2014. He does not drink alcohol. He is . He is disabled. HOME MEDICATIONS: Include: 1. Aspirin 81 mg a day. 2. Plavix 75 mg a day. 3. Pravastatin 80 mg a day. 4. Metoprolol 50 mg twice a day. 5. Nifedipine 90 mg a day. 6. Losartan 100 mg a day. 7. Glimepiride 4 mg two tablets daily. 8. Levemir. 9. Terazosin. 10. Metoclopramide. 11. Calcium acetate. 12. Xanax. ALLERGIES: NONE. PAST MEDICAL HISTORY: 1. Coronary artery disease, status post coronary artery bypass surgery by Dr. Caballero in 2014. 2. Pacemaker implantation in 2014. 3. Hypertension. 4. Severe peripheral arterial vascular disease. 5. Right below-knee amputation. 6. Left metatarsal amputation. 7. Diabetes mellitus with end-organ damage. 8. End-stage renal disease, on dialysis on Monday, , and Monday. 9. Ex-smoker. 10. Prostate problem. 11. Decreased left ear hearing. 12. Right eye retinopathy and decreased vision. 13. Left arm AV fistula surgery. FAMILY HISTORY: Father at age 83 with complication of kidney failure. He was diabetic and hypertensive. Six siblings, several with coronary artery disease and diabetes mellitus. PHYSICAL EXAMINATION: GENERAL: The patient is intubated on ventilator, is on Levophed. He is on vasopressin. He is having dialysis starting. VITAL SIGNS: Blood pressure 110/60. Pacemaker pacing at 70. Respiratory rate is ventilator rate. The patient is unresponsive. NECK: No elevation of jugular venous pulsation. Bilateral carotid bruit. CHEST: Crackles bilaterally. HEART: PMI in the 5th left intercostal space. Normal first and second heart sounds. ABDOMEN: Obese. EXTREMITIES: Right below-knee amputation. Left metatarsal amputation. There is small hematoma in the left groin on the right leg, there is right triple-lumen central line. NEUROLOGIC: The patient is on ventilator. LABORATORY DATA: White blood cell count on admission 28.5, today at 15.9 with hemoglobin of 9.6, hematocrit of 28%, and platelet count of 98,000. Today lab showed sodium of 133, potassium 3.5, BUN of 44, creatinine of 6.62, and glucose of 391. Chest x-ray showing ARDS like picture. Blood cultures are positive for gram-positive cocci. EKG showing pacemaker pacing. Earlier EKG showed idioventricular rhythm. IMPRESSION AND PLAN: 1. Sepsis and septicemia. 2. Septic shock. 3. Respiratory failure. 4. End-stage renal disease, on dialysis. 5. Coronary artery disease, status post coronary artery bypass surgery. 6. Severe peripheral arterial vascular disease. 7. Status post right below-knee amputation and left metatarsal amputation. 8. Elevated troponin at 1.3, most likely demand, secondary to septic status. 9. Severe hypotension. The patient on inotropes. Cardiac crouch, my recommendation is to continue aggressive care with hemodynamic support for the blood pressure, coverage with antibiotics, respiratory care. Regarding his elevated troponin, we will resume his aspirin and Plavix. The patient is seen in the intensive care unit and evaluated. Case discussed with the staff. Lengthy visit because of the patient's complexity of the problem. Questions are answered. Orders are written. Adelaida Yeung MD MOJ/MODL /[id number]
[2019-02-09] MEDS: VASOPRESSIN 100 UNIT in DEXTROSE 5% 100ML 95 ML IV SCH (20:00)
--- NOTE | 2019-02-09 20:05 | Diagnostic Imaging Report ---
Examination: Single AP view of the chest. COMPARISON: 02/09/2019 INDICATION: Sepsis DISCUSSION: Lines/tubes: Endotracheal tube 2 cm from the les. Right IJ catheter with tip overlying the SVC. Multi lead right-sided cardiac device. Sternotomy wires. Lungs: Pulmonary edema. Pleura: Probable small effusions. Heart and mediastinum: Cardiomegaly. Bones and soft tissues: No acute bony abnormalities. IMPRESSION: Cardiomegaly with stable pulmonary edema. Signed by: Dr. Cortez Dorsey M.D. on 02/09/2019 8:02 PM
[2019-02-09] MEDS ORDERED: DEXTROSE 10% 1,000 ML IV ONE (21:01)
[2019-02-09 21:13] LABS: INR 1.32
[2019-02-09 21:14] LABS: PARTIAL THROMBOPLASTIN TIME 52.4 seconds (23.8-35.5)
[2019-02-09 21:19] LABS: ANION GAP 16.6 mmol/L (8-16); CREATININE, SERUM 4.6 mg/dL (0.72-1.25); MAGNESIUM 1.8 MG/DL (1.3-2.1); PHOSPHORUS 4.2 MG/DL (2.3-4.7); POTASSIUM 3.6 mmol/L (3.5-5.1)
[2019-02-09 21:28] LABS: BASOPHILS % 0.1 % (0.0-1.0); EOSINOPHILS % 0.1 % (0.0-6.0); HEMATOCRIT 28.3 % (38.2-49.6); HEMOGLOBIN 9.7 g/dL (14.0-18.0); MEAN CORPUSCULAR HEMOGLOBIN 31.3 pg (28-32); MEAN CORPUSCULAR HGB CONC 34.3 g/dL (31-35); MEAN CORPUSCULAR VOLUME 91.3 fL (81-99); MONOCYTES # (AUTO) 0.7 (0.2-0.8); MONOCYTES % 5.3 % (4.4-11.3); NEUTROPHILS # (AUTO) 11.8 (2.1-6.9); NEUTROPHILS % 86.8 % (38.7-80.0); PLATELET COUNT 98 x10e3/uL (140-360); RED CELL DISTRIBUTION WIDTH 15.5 % (11.7-14.4)
[2019-02-09] MEDS: INSULIN REGULAR, HUMAN 3ML VL 100 UNIT in SODIUM CHLORIDE 0.45% 100 ML 100 ML IV SCH ×2 (21:31)
[2019-02-09] MEDS ORDERED: SODIUM CHLORIDE 0.9% 1000ML 1,000 ML ONE (23:12)
[2019-02-10] VITALS (58 sets, daily range): BP systolic 79–139; BP diastolic 40–63
[2019-02-10] MEDS: EYE LUBRICANT OPTH OINT 3.5GM TUBE OP SCH ×6 (00:57→20:30)
[2019-02-10] MEDS: SODIUM CHLORIDE 0.9% 250ML IRRIG IR SCH ×6 (00:58→21:15)
[2019-02-10] MEDS: IPRATROPIUM BROMIDE 0.02% 2.5 ML NEB NEB SCH ×4 (01:45→19:40)
[2019-02-10] MEDS: CEFEPIME 2 GM/NS 0.9% 100 ML 100 ML IV SCH ×2 (02:44→13:49)
[2019-02-10] MEDS: FENTANYL CITRATE INJ 2000 MCG in SODIUM CHLORIDE 0.9% 210 ML IV PRN (03:07)
[2019-02-10 03:21] LABS: BASOPHILS % 0.2 % (0.0-1.0); EOSINOPHILS % 0.2 % (0.0-6.0); HEMATOCRIT 28.3 % (38.2-49.6); HEMOGLOBIN 9.5 g/dL (14.0-18.0); LYMPHOCYTES # (AUTO) 0.9 (1.0-3.2); LYMPHOCYTES % 6.4 % (18.0-39.1); MEAN CORPUSCULAR HEMOGLOBIN 30.8 pg (28-32); MEAN CORPUSCULAR HGB CONC 33.6 g/dL (31-35); MEAN CORPUSCULAR VOLUME 91.9 fL (81-99); MONOCYTES # (AUTO) 0.7 (0.2-0.8); MONOCYTES % 4.7 % (4.4-11.3); NEUTROPHILS # (AUTO) 12.6 (2.1-6.9); NEUTROPHILS % 87.7 % (38.7-80.0); PLATELET COUNT 93 x10e3/uL (140-360); RED BLOOD COUNT 3.08 x10e6/uL (4.3-5.7); RED CELL DISTRIBUTION WIDTH 15.6 % (11.7-14.4)
[2019-02-10 03:32] LABS: INR 1.3; PROTHROMBIN TIME 16.8 seconds (11.9-14.5)
[2019-02-10 03:33] LABS: PARTIAL THROMBOPLASTIN TIME 48.1 seconds (23.8-35.5)
[2019-02-10 03:42] LABS: ALBUMIN 2.1 g/dL (3.5-5.0); ALBUMIN/GLOBULIN RATIO 0.5 (0.8-2.0); ANION GAP 16.7 mmol/L (8-16); CALCIUM 9.3 mg/dL (8.4-10.2); CREATININE, SERUM 4.89 mg/dL (0.72-1.25); POTASSIUM 3.7 mmol/L (3.5-5.1)
[2019-02-10 04:03] LABS: THYROID STIMULATING HORMONE 1.185 uIU/mL (0.350-4.940)
[2019-02-10 04:13] LABS: MAGNESIUM 1.7 MG/DL (1.3-2.1)
[2019-02-10] MEDS: INSULIN REGULAR, HUMAN 3ML VL 100 UNIT in SODIUM CHLORIDE 0.45% 100 ML 100 ML IV SCH ×4 (04:27→21:59)
[2019-02-10] MEDS: NOREPINEPHRINE 8 MG/D5W 250 ML 250 ML IV PRN (04:29)
--- NOTE | 2019-02-10 06:45 | Diagnostic Imaging Report ---
Examination: Single AP view of the chest. COMPARISON: 02/09/2019 INDICATION: ARDS DISCUSSION: Lines/tubes: Endotracheal tube 2 cm above the les. Right IJ catheter overlying the SVC. Multi lead right-sided cardiac device. Sternotomy wires. Lungs: Pulmonary edema with improved aeration in the right midlung. Pleura: Probable small effusions. Heart and mediastinum: Cardiomegaly. Bones and soft tissues: No acute bony abnormalities. IMPRESSION: 1. Pulmonary edema with improved aeration in the right midlung. Signed by: Dr. Cortez Dorsey M.D. on 02/10/2019 6:42 AM
[2019-02-10 07:13] LABS: CREATINE KINASE MB 16.3 ng/mL (0-5.0)
[2019-02-10] MEDS ORDERED: VANCOMYCIN 1GM/NS 250 ML 250 ML IV SCH (07:30)
[2019-02-10] MEDS ORDERED: MAGNESIUM SULFATE 2GM/50ML 50 ML IV ONE (08:30)
[2019-02-10] MEDS ORDERED: DEXTROSE 5% 1,000 ML IV ONE (08:30)
[2019-02-10] MEDS: PANTOPRAZOLE 40 MG 10ML VIAL IV SCH (09:53)
--- NOTE | 2019-02-10 10:36 | Progress Note ---
DATE: 02/10/2019 SUBJECTIVE: The patient is a 64-year-old male, who comes in with pulseless electrical activity, down time not known. The patient has respiratory failure, he is on ventilator and is also on hypothermia protocol. The patient is on rewarming protocol at this time. Temperatures have been increasing, however, there is a plateau for the last 2 hours. The patient does show some facial grimacing and twitching. No other movements noted. OBJECTIVE: VITAL SIGNS: Temperature is 95.7, pulse of 70, respirations 18, and blood pressure is 103/59. The patient is back on norepinephrine from yesterday on mechanical ventilator. HEENT: The patient is intubated. CVS: S1 and S2, regular. ABDOMEN: Nontender. Nondistended. EXTREMITIES: Positive for right BKA and also left with transmetatarsal amputation. LABORATORY VALUES: White count is 14.3, down from 21,000, hemoglobin of 9.5 down from 10, hematocrit is 28.3, down from 29.6. Neutrophil count up from yesterday to 87. Chemistries show sodium 138, potassium 3.7, BUN of 33, creatinine 4.89, glucose is 152. Microbiology; gram stain growth detected in the blood culture, workup ordered, this is from 02/08. Sputum culture Gram stain is pending. IMAGING: Today's chest x-ray shows pulmonary edema with improved aeration in the right mid lung. ASSESSMENT: Sepsis and septicemia, PEA, septic shock, respiratory failure, pulmonary edema, history of coronary artery disease, history of coronary artery bypass graft, troponin elevation and leak. Continue with hemodynamic support. The patient is on norepinephrine as on a rewarming protocol. Continue to monitor the patient, probable Neurology consult after has been titrated down. Continue with pressors at this time. Prognosis is very guarded. Continue to monitor the patient. The case has been discussed with the and the patient is currently still full code. The patient is also on dialysis as per renal protocol and also on GI prophylaxis. Further recommendation per clinical course. The patient's outlook looks very grim. Brett Xiao MD ASJ/MODL /[id number]
[2019-02-10] MEDS: CLOPIDOGREL BISULFATE 75 MG TAB PO SCH (12:13)
--- NOTE | 2019-02-10 17:36 | NUR ---
0774- Dr. Liu notified of patients labs this morning. 0930- Patient reached goal rewarming temperature. 1010- Dr. Yao called for neurology consult because patient is exhibiting reflexive movements. MD stated sedation needs to be weaned prior to consult. Fentanyl completely weaned per MD order. 1115- Dr. Yao came and assessed patient. 1400- Dr. Yeung aware that patient is NPO and has no OG or NG Tube and unable to give plavix.
--- NOTE | 2019-02-10 19:14 | Consultation ---
DATE OF CONSULTATION: 02/10/2019 Neurology Consult Note HISTORY OF PRESENT ILLNESS: Unfortunately, Mr. Martinez is intubated and sedated at present. History is obtained from review of the electronic medical records and from family members at the bedside. Mr. Martinez presented to the emergency center at [facility] on February 08, 2019, with a 1-day history of fevers and chills, decreased oral intake, and mild confusion. After undergoing an evaluation in the Emergency Center, Mr. Martinez was admitted to [facility] with altered mental status and sepsis, possibly secondary to pneumonia or other systemic infection. At approximately 1844 on the day of admission, the patient experienced a cardiac arrest. He received CPR and was intubated. Spontaneous circulation returned at approximately 1850. Then, at approximately 1903, the patient once again experienced cardiac arrest. He received CPR and one dose of epinephrine. Spontaneous circulation returned within 8-9 minutes. When combining the two periods of cardiac arrest, Mr. Martinez was without spontaneous circulation for approximately 14-15 minutes in a 30-minute period. Following his 2nd cardiac arrest, the patient was placed on a hypothermia protocol. During this time, he was sedated with fentanyl and a paralytic medication. Rewarming began on the evening of February 09, 2019 and was achieved approximately 2 hours prior to examination. Treatment with the paralytic agent was discontinued as the patient was rewarmed. Treatment with fentanyl was discontinued approximately 1 hour prior to examination. Less than an hour after sedation with fentanyl was discontinued, the patient demonstrated spontaneous posturing. A neurological consultation was requested for evaluation of posturing as well as prognosis. REVIEW OF SYSTEMS: The patient is intubated, sedated, and unresponsive. Review of systems cannot be obtained. PAST MEDICAL HISTORY: Hypertension, hyperlipidemia, diabetes mellitus, coronary artery disease, end-stage renal disease with hemodialysis on Tuesdays, , and Saturdays, gastritis, benign prostatic hypertrophy, obstructive sleep apnea, and peripheral vascular disease. PAST SURGICAL HISTORY: AV fistula placement in the left arm, left TMA, right BKA, CABG, cholecystectomy, pacemaker implantation. PAST HOSPITALIZATIONS: Surgeries/procedures as listed, numerous other hospitalizations for various symptoms. FAMILY MEDICAL HISTORY: Hypertension, diabetes mellitus. SOCIAL HISTORY: Mr. Martinez is . He is not employed. There is a remote history of tobacco use, but the patient no longer smokes cigarettes. There is no reported current or prior alcohol or recreational drug use. HOME MEDICATIONS: Aspirin 81 mg by mouth daily, Plavix 75 mg by mouth daily, amlodipine 10 mg by mouth daily, isosorbide mononitrate 30 mg by mouth daily, metoprolol 50 mg by mouth twice daily, atorvastatin 20 mg by mouth at bedtime daily, Levemir 10 units subcutaneously daily, Renagel 800 mg by mouth three times daily, gabapentin 300 mg by mouth daily, terazosin 2 mg by mouth at bedtime daily, multivitamin for patients with end-stage renal disease. HOSPITAL MEDICATIONS: Tylenol, Artificial Tears, cefepime, Plavix, dextrose, epinephrine, ibuprofen, ipratropium, nitroglycerin, Protonix, sodium chloride, vancomycin, vasopressin. ALLERGIES: NO KNOWN DRUG ALLERGIES. NO KNOWN FOOD ALLERGIES. NO KNOWN ALLERGIES TO LATEX. NO KNOWN ALLERGIES TO IODINE OR OTHER CONTRAST MATERIALS. Current infusions include magnesium sulfate at 25 mL/h, norepinephrine at 15 mL/h, insulin at 2 units/hour. PHYSICAL EXAMINATION: VITAL SIGNS: Core body temperature is 36.5 degrees Celsius, height 69 inches, weight 266 pounds, BMI 39.3 kg/m2, blood pressure 105/43 mmHg, pulse 70 beats per minute, respiratory rate 17 breaths per minute, and oxygen saturation 98% with the following ventilator settings: Oxygen concentration 90%, PEEP 10, respiratory rate 18, tidal volume 420 mL. GENERAL: The patient is sedated, unresponsive. Spontaneous decerebrate posturing is observed. Obese. HEENT: Normocephalic, atraumatic. The left pupil is 3 mm and the right pupil is 2 mm, round, and not reactive to light. Moist mucous membranes. NECK: Supple. No appreciable thyromegaly. No appreciable carotid bruits. CARDIOVASCULAR: S1, S2, regular rate and rhythm. No murmurs, rubs, or gallops. RESPIRATORY: Decreased air movement throughout anteriorly. The patient is mechanically ventilated. He does not breathe over the ventilator. EXTREMITIES: The skin is warm and dry. No clubbing, cyanosis, or edema. Left TMA. Right BKA. The posterior tibial and dorsalis pedis pulses are trace and symmetric. SKIN: No rashes or lesions. NEUROLOGIC: Memory/Attention: The patient is sedated. There is no response to verbal stimulation. The patient exhibits decerebrate posturing to central and peripheral noxious stimulation. Cranial Nerves: The left pupil is 3 mm and the right pupil is 2 mm. Both pupils are round and not reactive to light. There is a weakly positive left corneal reflex. There is a positive right corneal reflex. Oculocephalic reflex is intact. The gag reflex is not obtained. The face appears symmetric. Strength: Bulk is diminished throughout. Left TMA, right BKA. There is decerebrate posturing to peripheral noxious stimulation of the arms. There is no response to peripheral noxious stimulation to the legs. Tone is decreased throughout. DTRs: Deep tendon reflexes are absent. Plantar responses are mute on the left, unable to obtain on the right. Sensation: As per motor exam. Cerebellar: Unable to assess secondary to the patient being intubated, sedated, and unresponsive. Gait: Unable to assess secondary to the patient being intubated, sedated, and unresponsive. Speech: Unable to assess secondary to the patient being intubated, sedated, and unresponsive. Involuntary movements: Spontaneous decerebrate posturing. Pronator Drift: As per motor exam. LABORATORY DATA: The most recent comprehensive metabolic panel is significant for an anion gap of 16.7, BUN of 33, creatinine of 4.89, estimated GFR of 12, glucose of 152, AST of 72, ALT of 63, total protein of 6.0, albumin of 2.1, globulin of 3.9, albumin to globulin ratio of 0.5. Magnesium 1.7. Lactic acid 9.8. Lipase 1450. TSH 1.185. Creatine kinase 627, CK-MB 16.30, and troponin I 1.418. The most recent B- natriuretic peptide was 850.8 on February 08, 2019. The most recent complete blood count with differential reveals a white blood cell count of 14.32 with a left shift with 87.7% neutrophils, 6.4% lymphocytes, 4.7% monocytes, 0.2% eosinophils, and 0.2% basophils. The hemoglobin and hematocrit are 9.5 and 28.3, respectively. The platelet count is 93. An arterial blood gas drawn on February 09, 2019 revealed a pH of 7.37, pCO2 of 47, PO2 of 135, bicarbonate of 27, O2 saturation of 99.0, and base excess of 2.0 with FiO2 of 100. A coagulation profile drawn on February 10, 2019 reveals a PT of 16.8, INR 1.30, and PTT of 48.1. Influenza types A and B antigen are negative. Hepatitis panel is pending. A sputum culture collected on February 08, 2019, grew yeast. Blood cultures collected on February 08, 2019, grew Streptococcus species, alpha hemolytic. Repeat blood cultures drawn on February 10, 2019 are pending. DIAGNOSTIC STUDIES: Chest x-ray on 02/08/2019: Enlargement of the cardiac silhouette with prominence of the pulmonary interstitium, likely reflective of edema, though atypical infection is an additional consideration in the clinical setting of sepsis. CT of the brain without contrast of 02/08/2019: On my review, there is no evidence of recent large territorial ischemia, hemorrhage, mass, or mass effect. Remote lacunar infarcts are seen in the left caudate and left man radiata. There is mild diffuse cerebral atrophy, more than expected for the patient's age, there are findings compatible with [id number] chronic small-vessel ischemic disease. Chest x-ray on 02/08/2019: Cardiomegaly with pulmonary venous congestion. Abdomen x-ray on 02/08/2019: Nonobstructive bowel gas pattern. Abdomen x-ray on 02/09/2019: NG tube terminates at the thoracic inlet, recommend repositioning. Other lines and tubes as above. Low lung volumes with increasing pulmonary edema. Increasing patchy opacities of the lung bases which may represent atelectasis or pneumonia in the appropriate clinical setting. Chest x-ray on 02/10/2019: Pulmonary edema with improved aeration in the right mid lung. ASSESSMENT AND PLAN: Mr. Martinez is a 64-year-old man with past medical history as detailed, admitted to [facility] on February 08, 2019, with fever, chills, decreased oral intake, and mild confusion attributed to sepsis, possibly secondary to pneumonia or other systemic infection. On the day of admission, the patient experienced two cardiac arrests as described in the history of present illness. In total, the patient was without spontaneous circulation for approximately 14-15 minutes within a 30-minute period. Mr. Martinez has undergone hypothermia protocol with core body temperature achieved approximately 2 hours prior to evaluation. Sedation with fentanyl was discontinued approximately 1 hour prior to evaluation. The patient's neurological examination is significant for spontaneous decerebrate posturing. Mr. Martinez is not responsive to verbal stimulation of any kind. He demonstrates decerebrate posturing to central and peripheral noxious stimulation. The patient's laboratory data and other diagnostic studies have been reviewed and are documented above. The presence of decerebrate posturing indicates probable severe brain damage, possibly from hypoxic/anoxic ischemic brain injury. However, stroke, hemorrhage, or other intracranial pathology could produce similar damage and findings on neurological examination. RECOMMENDATIONS: As follows: 1. Ideally, an MRI of the brain without contrast would be obtained to evaluate for intracranial pathology. However, an MRI may not be obtained because the patient remains on pressor support. He has a pacemaker as well, which prohibits imaging with MRI. Therefore, a CT of the brain without contrast will be performed at 0600 on February 11, 2019, to assess for hypoxic/anoxic ischemic injury, stroke, hemorrhage, etc. 2. A routine EEG will be ordered to evaluate the patient's electrocortical activity as well as to evaluate for seizure activity, although there is no suspicion for seizure at this time. 3. Treatment with sedation and pain medications as these will alter the patient's sensorium. It is important to note, that while the continuous infusion of fentanyl has been discontinued, the effects of this medication remain and the patient is sedated on neurological examination. This undoubtedly is impacting the patient's neurological examination, though the degree of impact is unknown. 4. Defer treatment of the remaining medical comorbidities to the primary and other services following the patient. Thank you for this consultation. I will continue to follow the patient while he remains in the hospital. TIME SPENT: 70 minutes. Carmel Yao MD CP/MADIHA /[id number]
[2019-02-10] MEDS: VASOPRESSIN 100 UNIT in DEXTROSE 5% 100ML 95 ML IV SCH (20:00)
[2019-02-11] VITALS (26 sets, daily range): BP systolic 87–138; BP diastolic 41–76
[2019-02-11] MEDS: EYE LUBRICANT OPTH OINT 3.5GM TUBE OP SCH ×6 (00:53→20:50)
[2019-02-11] MEDS: SODIUM CHLORIDE 0.9% 250ML IRRIG IR SCH ×6 (00:53→20:51)
[2019-02-11] MEDS: IPRATROPIUM BROMIDE 0.02% 2.5 ML NEB NEB SCH ×4 (01:30→19:15)
[2019-02-11] MEDS: CEFEPIME 2 GM/NS 0.9% 100 ML 100 ML IV SCH (03:24)
[2019-02-11 05:33] LABS: BASOPHILS % 0.2 % (0.0-1.0); EOSINOPHILS # (AUTO) 0.1 (0.0-0.4); EOSINOPHILS % 0.3 % (0.0-6.0); HEMATOCRIT 27.1 % (38.2-49.6); LYMPHOCYTES # (AUTO) 1.2 (1.0-3.2); LYMPHOCYTES % 6.3 % (18.0-39.1); MEAN CORPUSCULAR HEMOGLOBIN 31.1 pg (28-32); MEAN CORPUSCULAR HGB CONC 33.2 g/dL (31-35); MEAN CORPUSCULAR VOLUME 93.8 fL (81-99); MONOCYTES # (AUTO) 0.9 (0.2-0.8); NEUTROPHILS # (AUTO) 16.4 (2.1-6.9); PLATELET COUNT 110 x10e3/uL (140-360); RED BLOOD COUNT 2.89 x10e6/uL (4.3-5.7); RED CELL DISTRIBUTION WIDTH 15.9 % (11.7-14.4)
--- NOTE | 2019-02-11 05:34 | Diagnostic Imaging Report ---
Examination: Single AP view of the chest. COMPARISON: 02/10/2019 INDICATION: ARDS DISCUSSION: Lines/tubes: Endotracheal tube 2 cm above the les. Right IJ catheter overlying the SVC. Multi lead right-sided cardiac device. Sternotomy wires. Lungs: Pulmonary edema with decreased aeration in the right midlung. Pleura: Probable small effusions. Heart and mediastinum: Cardiomegaly. Bones and soft tissues: No acute bony abnormalities. Degenerative changes in the thoracic spine. IMPRESSION: 1. Pulmonary edema with decreased aeration and opacity in the right midlung. Signed by: Dr. Cortez Dorsey M.D. on 02/11/2019 5:31 AM
[2019-02-11 07:30] LABS: BAND NEUTROPHILS % (MANUAL) 2 %; LYMPHOCYTES % (MANUAL) 6 % (19-48); METAMYELOCYTES % (MANUAL) 1 % (0-0); MONOCYTES % (MANUAL) 4 % (3.4-9.0); MYELOCYTES % (MANUAL) 2 % (0-0); NEUTROPHILS % (MANUAL) 85 % (40-74)
[2019-02-11 07:31] LABS: PLATELET ESTIMATE SLIGHTLY DECREASED; PLATELET MORPHOLOGY COMMENT MODERATE LARGE; RBC MORPHOLOGY COMMENT NORMAL
[2019-02-11 07:54] LABS: ALBUMIN 2.1 g/dL (3.5-5.0); ALBUMIN/GLOBULIN RATIO 0.5 (0.8-2.0); ANION GAP 16.3 mmol/L (8-16); CALCIUM 9.4 mg/dL (8.4-10.2); CREATININE, SERUM 6.05 mg/dL (0.72-1.25); MAGNESIUM 2.3 MG/DL (1.3-2.1); PHOSPHORUS 3.8 MG/DL (2.3-4.7); POTASSIUM 4.3 mmol/L (3.5-5.1)
[2019-02-11] MEDS: CLOPIDOGREL BISULFATE 75 MG TAB PO SCH (09:22)
[2019-02-11] MEDS: PANTOPRAZOLE 40 MG 10ML VIAL IV SCH (09:22)
--- NOTE | 2019-02-11 12:50 | NUR ---
ASSESSMENT: Spiritual distress Pt's resolved concerning her decision about 's illness/plan. Pt's , daughter & granddaughter at bedside. Pt's states "everyone is saying the same thing" concerning her 's illness. Pt's states the family wants to remove LST based on his condition. Intervention: Provided hospitality. Facilitated discussion concerning pt's illness and plan. Provided information about human factors scientist availability. Outcome: Will follow as able. HAL I[employer] Glass Forming Engineer Spiritual Care Department O: [phone] Pager: [phone] ([phone] number calling from)
--- NOTE | 2019-02-11 13:20 | NUR ---
Per 's request, Dr Clark changed code status to DNR. and daughter request no more unnecessary interventions, refuse ECHO and CT and plan to extubate later today.
[2019-02-11] MEDS: CEFTRIAXONE SOD 1 GM/NS 50 ML 50 ML IV SCH (15:30)
[2019-02-11] MEDS ORDERED: LORAZEPAM INJ 2 MG/ML VIAL IV PRN (19:00)
[2019-02-11] MEDS ORDERED: MORPHINE SULFATE INJ 10 MG/ML IV PRN (19:15)
--- NOTE | 2019-02-11 19:15 | NUR ---
Patient extubated to [facility]. JENNIFER Loza and JENNIFER Palomo at bedside with family.
--- NOTE | 2019-02-11 19:30 | NUR ---
Patient remains with no sign of discomfort or distress, condition communicated to Dr Clark. Orders rec'd. agrees with current plan of comfort care. JENNIFER Loza assumes care of patient.
[2019-02-11] MEDS: VASOPRESSIN 100 UNIT in DEXTROSE 5% 100ML 95 ML IV SCH (20:00)
[2019-02-12] VITALS (11 sets, daily range): BP systolic 0–101; BP diastolic 0–51
[2019-02-12] MEDS: EYE LUBRICANT OPTH OINT 3.5GM TUBE OP SCH ×3 (00:35→07:30)
[2019-02-12] MEDS: SODIUM CHLORIDE 0.9% 250ML IRRIG IR SCH ×3 (00:35→07:30)
[2019-02-12] MEDS: IPRATROPIUM BROMIDE 0.02% 2.5 ML NEB NEB SCH ×2 (00:50→07:00)
[2019-02-12] MEDS: CEFTRIAXONE SOD 1 GM/NS 50 ML 50 ML IV SCH (02:56)
[2019-02-12] MEDS: PANTOPRAZOLE 40 MG 10ML VIAL IV SCH (07:30)
[2019-02-12] MEDS: CLOPIDOGREL BISULFATE 75 MG TAB PO SCH (07:30)
--- NOTE | 2019-02-12 08:57 | NUR ---
SPOKE WITH FAMILY SIGNED CHOICE FOR [facility], LET REP KNOW AND SHE WILL MEET WITH THE FAMILY WITHIN THE HOUR AND ASSIST WITH GETTING THE PT HOME THIS MORNING.
--- NOTE | 2019-02-12 09:30 | NUR ---
Patient with change in breathing pattern from regular to agonal. At 0945, patient with cessation of breathing, unable to obtain a pulse. BP 0/0. Dr Clark aware. Family states they do not wish for a logistics vice president of other workforce staffing advisor to be contacted at this time.
--- NOTE | 2019-02-12 12:00 | NUR ---
Dr Gandara pronounced patient .
--- NOTE | 2019-02-12 14:38 | NUR ---
Patient body released to home via stretcher.
--- NOTE | 2019-02-12 19:51 | Electroencephalogram ---
DATE OF STUDY: 02/11/2019 REQUESTING PHYSICIAN: REQUESTING PHYSICIAN: Carmel Yao M.D. PATIENT HISTORY: This 64-year-old man with a history of cardiac arrest x 2, is having an EEG for evaluation of epileptiform activity as well as electrocortical activity. The patient is taking the following medications, which may affect the EEG: Fentanyl, Versed. TECHNIQUE: This is a routine, portable EEG, recorded digitally, using the International 10/20 electrode placement system, and done in the inpatient setting with the patient comatose. The EEG is technically limited because of muscle and electrical artifact. DESCRIPTION: Poorly-organized, poorly-sustained 2-3 hertz activity is best seen symmetrically in the posterior head regions. 13-14 Hz activity is intermixed, probably secondary to medication effect. No focal or epileptiform activity is recorded. Sleep is not recorded. There is no reactivity of background electrocortical activity. Photic stimulation is not performed. Hyperventilation is not performed. INTERPRETATION: This EEG is abnormal with the patient in a comatose state secondary to diffuse slowing of background electrocortical activity compatible with a severe generalized encephalopathy. No epileptiform discharges are seen. Clinical correlation is recommended. Carmel Yao MD CP/MADIHA /[id number] MTDD
--- NOTE | 2019-02-14 06:52 | Discharge Summary ---
SUMMARY. CAUSE OF : Secondary to sepsis and anoxic encephalopathy. HISTORY OF PRESENT ILLNESS: The patient is a gentleman, 64-year-old with multiple comorbidities with diabetes, peripheral arterial disease, amputation, end-stage renal disease, hypertension, who presented with acute onset of fever up to 104 degrees within a couple of hours. On admission, he was brought and was unfortunately started becoming more obtunded in the emergency room, where he went to code blue with the PEA with a wide-complex rhythm. He had to be resuscitated and intubated and then he was put on cooling protocol. He was placed on IV antibiotics, seen by multiple specialists. He did grow in the blood culture Streptococcal viridans. The patient did go through a cooling protocol. Once cooling protocol was done, the patient had clear evidence of anoxic brain injury. He was seen by Neurology, who also confirmed his anoxic brain injury. After a long discussion with the family, they initially made him DNR and ultimately then we withdrew life support for terminal comfort care, where the patient then on the following morning. Please see hospital chart for full details. MD LISBETH Bernal/MADIHA /[id number]
== END 2019-02-12 14:41 | disposition expired | DRG 871 ==
LOC: ER 11:32 → ERHOLD 15:57 → ICU 20:28
PROVIDERS: ADMIT Internal Medicine; ATTEND Internal Medicine
PROC: 0BH17EZ Insertion of Endotracheal Airway into Trachea, Via Natural or Artificial Opening (ICD-10-PCS; principal; 2019-02-08)
PROC: 5A1945Z Respiratory Ventilation, 24-96 Consecutive Hours (ICD-10-PCS; 2019-02-08)
PROC: 5A1D70Z Performance of Urinary Filtration, Intermittent, Less than 6 Hours Per Day (ICD-10-PCS; 2019-02-09)
DX: A41.9 Sepsis, unspecified organism (principal); N18.6 End stage renal disease; R65.21 Severe sepsis with septic shock; J96.00 Acute respiratory failure, unspecified whether with hypoxia or hypercapnia; E11.10 Type 2 diabetes mellitus with ketoacidosis without coma; G93.1 Anoxic brain damage, not elsewhere classified; I12.0 Hypertensive chronic kidney disease with stage 5 chronic kidney disease or end stage renal disease; I24.8 Other forms of acute ischemic heart disease; E87.2 Acidosis; Z99.2 Dependence on renal dialysis; E11.22 Type 2 diabetes mellitus with diabetic chronic kidney disease; Z79.4 Long term (current) use of insulin; E11.51 Type 2 diabetes mellitus with diabetic peripheral angiopathy without gangrene; I46.9 Cardiac arrest, cause unspecified; I25.10 Atherosclerotic heart disease of native coronary artery without angina pectoris; Z95.1 Presence of aortocoronary bypass graft; Z89.511 Acquired absence of right leg below knee; E11.42 Type 2 diabetes mellitus with diabetic polyneuropathy; I48.91 Unspecified atrial fibrillation; Z79.01 Long term (current) use of anticoagulants; Z95.0 Presence of cardiac pacemaker; F17.200 Nicotine dependence, unspecified, uncomplicated; H91.90 Unspecified hearing loss, unspecified ear; J98.01 Acute bronchospasm; H35.00 Unspecified background retinopathy; E83.42 Hypomagnesemia; E87.6 Hypokalemia
CPT/HCPCS: 36415; 36600; 70450; 71045; 74018; 80048; 80053; 82550; 82553; 82805; 82947; 82948; 83036; 83605; 83690; 83735; 83880; 84100; 84439; 84443; 84484; 85025; 85610; 85730; 86704; 86707; 87040; 87070; 87071; 87205; 87350; 87400; 90962; 93005; 94002; 94003; 94640; 94660; 95812; 95822; 99285; J0171; J1817; J3370; J3475; J3480; J7030; J7040; J7050; J7070